=== PATIENT | female | born 1975 | race American Indian/Alaskan Native ===

== ENCOUNTER 2016-10-17 08:11 | Outpatient (CLI) | payer MEDICAID ==
--- NOTE | 2016-10-17 09:30 | Mammography Report ---
Bilateral Baseline digital screening mammogram with CAD. Findings: The breasts have a fibrofatty appearance. In the upper-outer quadrant of the left breast, there is an ovoid shaped nodular asymmetry. This has circumscribed margins. No additional focal abnormalities are seen in either breast. There is no architectural distortion. Impression: Left nodular asymmetry. BI-RADS code: 0. Recommendation: Ultrasound.
== END 2016-10-17 08:12 | disposition home or self-care (01) ==
LOC: MAMMO 08:11
PROVIDERS: ATTEND Internal Medicine
DX: Z12.31 Encounter for screening mammogram for malignant neoplasm of breast (principal)
CPT/HCPCS: 77067; G0202

== ENCOUNTER 2016-11-05 10:06 | Outpatient (CLI) | payer MEDICAID | END 2016-11-05 10:07 | disposition home or self-care (01) | LOC: US 10:06 | PROVIDERS: ATTEND Internal Medicine | DX: N64.89 Other specified disorders of breast (principal) ==

== ENCOUNTER 2017-11-03 13:39 | Emergency (ER) | payer MEDICAID ==
[2017-11-03] MEDS ORDERED: ZOFRAN ODT PO PRN (14:06)
[2017-11-03] MEDS ORDERED: PEPCID IV ONE (14:06)
[2017-11-03] MEDS ORDERED: NACL 0.9% 1000 ML 1,000 ML IV ONE (14:06)
[2017-11-03] MEDS ORDERED: LIDOCAINE VISCOUS 2% PO ONE (14:07)
[2017-11-03] MEDS ORDERED: CARAFATE PO ONE (14:07)
[2017-11-03] MEDS ORDERED: ALUM-MAG HYDROX-SIMETH 200-200-20MG/5ML PO ONE (14:07)
--- NOTE | 2017-11-03 14:08 | Emergency Department Report ---
ED Abdominal Pain HPI - General Chief Complaint: Abdominal Pain Stated Complaint: ABD PAIN Time Seen by Provider: 11/03/17 13:54 Source: patient, EMS (ems notes not available at time of chart dictation), RN notes reviewed, old records reviewed Mode of arrival: Stretcher Limitations: No Limitations - History of Present Illness Initial Comments: This is a 42-year-old female. The patient is previously unknown to this provider. Past medical history: Cerebral palsy, hypertension, stroke with mild right sided deficits Gastroenterology: Dr. Nayla Silva Patient had upper endoscopy with her street supervisor's earlier on this year, it demonstrated reflux esophagitis, nonbleeding esophageal ulcers, hiatal hernia , duodenitis The patient was instructed to discontinue NSAIDs. Patient's medications include [place]. The patient presents to the ER with a complaint of abdominal pain. It is epigastric and does not radiate anywhere. It increases with palpation and decreases with rest. Patient admits to some nausea and vomiting. She last defecated 3 days ago. She denies irritative and obstructive urinary symptoms. She reports that she is not drinking much water. She denies chest pain. Patient has some of her enclosed medical records with her, recently had a contrast enhanced CT angiogram for the chest/coronary arteries on 08/27/2017; the CT scan demonstrated concentric wall thickening of the images esophagus There was also a nonspecific focus in the dome of the liver. MD Complaint: abdominal pain -: Gradual, days(s), week(s) Location: diffuse Severity: moderate Severity scale (0 -10): 10 Quality: cramping, aching Consistency: intermittent Improves With: rest Worsens With: movement Associated Symptoms: nausea, vomiting, constipation. denies: diarrhea, fever, chills, dysuria, hematemesis, hematochezia, melena, hematuria, anorexia, syncope - Related Data Home Medications Medication Instructions Recorded Confirmed Last Taken Simvastatin [Zocor] 20 mg PO QHS 08/14/14 04/27/15 04/27/15 09:13 20 Aspirin EC [Aspirin Enteric Coated 81 mg PO DAILY 04/27/15 04/27/15 04/26/15 08: 00 TAB] Cyclobenzaprine [Flexeril 10 MG 10 mg PO BID 04/27/15 04/27/15 04/26/15 21:00 TAB] Furosemide [Lasix TAB] 20 mg PO BID 04/27/15 04/27/15 04/26/15 21:00 Gabapentin [Neurontin] 300 mg PO Q8HR 04/27/15 04/27/15 04/26/15 21:00 HYDROcodone/APAP 7.5-325 [[place] 1 each PO Q8HR PRN 04/27/15 04/27/15 04/26/15 08 :00 7.5/325] Lacosamide [Vimpat] 100 mg PO BID 04/27/15 04/27/15 04/26/15 100 Previous Rx's Medication Instructions Recorded Last Taken Type Acetaminophen [Tylenol Arthritis] 650 mg PO Q6HR PRN #30 tablet.er 11/03/17 Unknown Rx Famotidine [Pepcid] 20 mg PO BID #30 tablet 11/03/17 Unknown Rx Ondansetron [Zofran Odt] 4 mg PO Q8HR PRN #20 tab.rapdis 11/03/17 Unknown Rx Allergies Allergy/AdvReac Type Severity Reaction Status Date / Time No Known Allergies Allergy Verified 04/28/15 10:48 ED Review of Systems ROS: Stated complaint: ABD PAIN Other details as noted in HPI Comment: All other systems reviewed and negative ED Past Medical Hx - Past Medical History Hx Hypertension: Yes Hx CVA: Yes Hx Congestive Heart Failure: No Hx Diabetes: No Hx Seizures: Yes Hx Asthma: No Hx COPD: No Additional medical history: cerebral palsy - Surgical History Past Surgical History?: Yes Additional Surgical History: groin surgeryL leg surgery - Social History Smoking Status: Never Smoker - Medications Home Medications: Home Medications Medication Instructions Recorded Confirmed Last Taken Type Simvastatin [Zocor] 20 mg PO QHS 08/14/14 04/27/15 04/27/15 09:13 History 20 Aspirin EC [Aspirin Enteric Coated 81 mg PO DAILY 04/27/15 04/27/15 04/26/15 08: 00 History TAB] Cyclobenzaprine [Flexeril 10 MG 10 mg PO BID 04/27/15 04/27/15 04/26/15 21:00 History TAB] Furosemide [Lasix TAB] 20 mg PO BID 04/27/15 04/27/15 04/26/15 21:00 History Gabapentin [Neurontin] 300 mg PO Q8HR 04/27/15 04/27/15 04/26/15 21:00 History HYDROcodone/APAP 7.5-325 [[place] 1 each PO Q8HR PRN 04/27/15 04/27/15 04/26/15 08 :00 History 7.5/325] Lacosamide [Vimpat] 100 mg PO BID 04/27/15 04/27/15 04/26/15 History 100 Acetaminophen [Tylenol Arthritis] 650 mg PO Q6HR PRN #30 tablet.er 11/03/17 Unknown Rx Famotidine [Pepcid] 20 mg PO BID #30 tablet 11/03/17 Unknown Rx Ondansetron [Zofran Odt] 4 mg PO Q8HR PRN #20 tab.rapdis 11/03/17 Unknown Rx ED Physical Exam - General Limitations: No Limitations General appearance: alert, in no apparent distress - Head Head exam: Present: atraumatic, normocephalic - Eye Eye exam: Present: normal appearance, EOMI. Absent: nystagmus - ENT ENT exam: Present: normal exam, normal orophraynx, mucous membranes moist, normal external ear exam - Neck Neck exam: Present: normal inspection, full ROM - Respiratory Respiratory exam: Present: normal lung sounds bilaterally. Absent: respiratory distress - Cardiovascular Cardiovascular Exam: Present: regular rate, normal rhythm, normal heart sounds. Absent: systolic murmur, diastolic murmur, rubs, gallop - GI/Abdominal GI/Abdominal exam: Present: soft, tenderness, normal bowel sounds, other (mild epigastric tenderness. No rebound, guarding or peritoneal signs). Absent: distended, guarding, rebound, rigid, pulsatile mass - Extremities Exam Extremities exam: Present: normal inspection, full ROM, normal capillary refill. Absent: pedal edema, joint swelling, calf tenderness - Back Exam Back exam: Present: normal inspection, full ROM. Absent: tenderness, CVA tenderness (R), paraspinal tenderness, vertebral tenderness - Neurological Exam Neurological exam: Present: alert, other (patient moves 4 extremities spontaneously. There is no facial droop. The extraocular movements are intact. Sensation is intact to light touch in the upper and lower extremities. Patient is somewhat anxious.) - Psychiatric Psychiatric exam: Present: anxious - Skin Skin exam: Present: warm, dry, intact, normal color. Absent: rash ED Course Vital Signs 11/03/17 11/03/1711/03/18 13:41 13:47 13:59 Temperature 98.1 F 98.1 F Pulse Rate 65 88 Respiratory 16 16 Rate Blood Pressure 131/73 Blood Pressure 131/73 [Right] O2 Sat by Pulse 99 99 100 Oximetry 11/03/17 11/03/17 11/03/17 14:00 14:01 14:15 Temperature Pulse Rate Respiratory 16 Rate Blood Pressure 125/71 122/70 Blood Pressure [Right] O2 Sat by Pulse 100 99 99 Oximetry 11/03/17 11/03/17 11/03/17 14:30 14:45 15:00 Temperature Pulse Rate Respiratory Rate Blood Pressure 122/70 122/70 123/75 Blood Pressure [Right] O2 Sat by Pulse 99 98 99 Oximetry 11/03/17 11/03/17 11/03/17 15:15 15:30 16:11 Temperature Pulse Rate Respiratory Rate Blood Pressure 123/75 123/75 123/75 Blood Pressure [Right] O2 Sat by Pulse 98 98 98 Oximetry 11/03/17 11/03/17 11/03/17 16:15 16:30 16:45 Temperature Pulse Rate Respiratory Rate Blood Pressure 123/75 123/75 123/75 Blood Pressure [Right] O2 Sat by Pulse 100 99 99 Oximetry 11/03/17 11/03/17 11/03/17 17:00 17:15 17:31 Temperature Pulse Rate Respiratory Rate Blood Pressure 123/75 122/69 122/69 Blood Pressure [Right] O2 Sat by Pulse 98 99 99 Oximetry 11/03/17 11/03/17 17:45 18:01 Temperature Pulse Rate Respiratory Rate Blood Pressure 122/69 141/82 Blood Pressure [Right] O2 Sat by Pulse 98 97 Oximetry - Reevaluation(s) Reevaluation #1: 11/03/17 15:26 Differential diagnosis, including but not limited to: Constipation, gastritis, bowel obstruction, narcotic bowel syndrome Assessment and plan: 42-year-old female with a few weeks of abdominal pain and mild tenderness. The patient is a poor historian. Review of old medical records is appreciated. She is mostly constipated with a component of gastritis. However, she endorses that her child care team lead recommended she come to the ER for a CAT scan. She is medicated appropriately. Her laboratory studies are unremarkable. CT scan abdomen and pelvis is pending at this time. Reevaluation #2: 11/03/17 16:[address] Justice Chatterjee to follow up on ct a/p. would discharge if negative ED Medical Decision Making - Lab Data Result diagrams: 11/03/17 14:04 11/03/17 14:04 - Radiology Data Radiology results: report reviewed, image reviewed CT scan of the abdomen and pelvis is negative for acute disease. Incidental findings noted. Critical care attestation.: If time is entered above; I have spent that time in minutes in the direct care of this critically ill patient, excluding procedure time. ED Disposition Clinical Impression: Abdominal pain Disposition: DC- TO HOME OR SELFCARE Is pt being admited?: No Does the pt Need Aspirin: No Condition: Stable Instructions: Abdominal Pain (ED) Additional Instructions: continue current outpatient medications. discontinue percocet/narcotic therapy. drink 6-8 cups water/day. follow up with your GI doctor or pmd within the next 10 days. return right away if your pain changes or gets worse Prescriptions: Acetaminophen [Tylenol Arthritis] 650 mg PO Q6HR PRN #30 tablet.er PRN Reason: Pain Famotidine [Pepcid] 20 mg PO BID #30 tablet Ondansetron [Zofran Odt] 4 mg PO Q8HR PRN #20 tab.rapdis PRN Reason: Nausea Referrals: COURTNEY SILVA MD [Staff Physician] - 3-5 Days
[2017-11-03 14:17] LABS: Basophils # (Auto) 0.1 K/mm3 (0.0-0.1); Basophils % (Auto) 0.7 % (0.0-1.8); Eosinophils # (Auto) 0.1 K/mm3 (0.0-0.4); Eosinophils % (Auto) 1.9 % (0.0-4.3); Hemoglobin 12.3 gm/dl (10.1-14.3); Lymphocytes # (Auto) 3.1 K/mm3 (1.2-5.4); Lymphocytes % (Auto) 39.7 % (13.4-35.0); Mean Corpuscular HGB Conc 33 % (30-34); Mean Corpuscular Hemoglobin 31 pg (28-32); Mean Corpuscular Volume 93 fl (79-97); Monocytes # (Auto) 0.4 K/mm3 (0.0-0.8); Monocytes % (Auto) 5.3 % (0.0-7.3); Platelet Count 308 K/mm3 (140-440); Red Blood Count 3.97 M/mm3 (3.65-5.03); Red Cell Distribution Width 14.2 % (13.2-15.2)
[2017-11-03 14:30] LABS: Alanine Aminotransferase 17 units/L (7-56); Albumin 4.1 g/dL (3.9-5); BUN/Creatinine Ratio 20; Blood Urea Nitrogen 12 mg/dL (7-17); Calcium 9.1 mg/dL (8.4-10.2); Hemolysis Index 14
[2017-11-03 15:01] LABS: HCG Qualitative,Urine Negative (Negative)
[2017-11-03 15:02] LABS: Bilirubin,Urine NEG (Negative); Blood,Urine NEG (Negative); Color,Urine Yellow (Yellow); Mucus,Urine FEW /HPF; Protein,Urine <15 mg/dL mg/dL (Negative); Urobilinogen,Urine < 2.0 mg/dL (<2.0)
--- NOTE | 2017-11-03 17:29 | Cat Scan Report ---
FINAL REPORT EXAM: CT ABDOMEN PELVIS W CON HISTORY: ABD PAIN TECHNIQUE: CT abdomen and pelvis with intravenous contrast PRIORS: None. FINDINGS: No acute abnormality identified in the lung bases. There is a small hiatal hernia. There is enhancing 1.6 x 1.8 centimeter focus superior aspect right lobe of the liver with a peripheral nodular enhancement pattern consistent with hemangioma.. The spleen demonstrates normal size and attenuation. No pancreatic abnormalities seen. The kidneys demonstrate symmetric contrast enhancement. No evidence of hydronephrosis. The adrenal glands are unremarkable Abdominal aorta is normal in caliber. No pathologically enlarged lymph nodes are identified. No signs of free fluid or free air No evidence of small bowel dilatation. Colon is nondistended. No pericolonic inflammatory change. The appendix is identified and is unremarkable. Urinary bladder is unremarkable. IMPRESSION: Hiatal hernia hemangioma right lobe of the liver Otherwise no acute findings
[2017-11-03 18:30] VITALS: BP 141/82
== END 2017-11-03 18:15 | disposition home or self-care (01) ==
LOC: ED 13:39
DX: R10.13 Epigastric pain (principal); R11.2 Nausea with vomiting, unspecified; K59.00 Constipation, unspecified; I10 Essential (primary) hypertension; Z86.73 Personal history of transient ischemic attack (TIA), and cerebral infarction without residual deficits
CPT/HCPCS: 36415; 74177; 80053; 81001; 81025; 83690; 85025; 96361; 96374; 99284; J7030; Q9967; Q0162

== ENCOUNTER 2018-04-26 14:05 | Emergency (ER) | payer MEDICAID ==
[2018-04-26 14:18] VITALS: BP 151/87
--- NOTE | 2018-04-26 16:46 | Emergency Department Report ---
ED ENT HPI - General Chief complaint: Headache Stated complaint: (R) SIDE HEAD PAIN Time Seen by Provider: 04/26/18 16:32 Source: patient Mode of arrival: Ambulatory Limitations: No Limitations - History of Present Illness Initial comments: Ms. Cruz is a 42 yo female who present with toothache and right facial pain. Mild pain. Did not attempt pain medications. Was told to avoid ibuprofen by stomach specialist. blurry vision mentioned by triage note, patient does not endorse this symptom Ms. Cruz has hx of CP, CVA HTN. MD complaint: tooth pain, other (facial pain) -: Gradual, days(s) (2) Severity: mild Consistency: constant Improves with: pressure Context- Dental: history of dental caries, poor dental care Associated Symptoms: gum swelling, toothache - Related Data Home Medications Medication Instructions Recorded Confirmed Last Taken Simvastatin [Zocor] 20 mg PO QHS 08/14/14 04/27/15 04/27/15 09:13 20 Aspirin EC [Aspirin Enteric Coated 81 mg PO DAILY 04/27/15 04/27/15 04/26/15 08: 00 TAB] Cyclobenzaprine [Flexeril 10 MG 10 mg PO BID 04/27/15 04/27/15 04/26/15 21:00 TAB] Furosemide [Lasix TAB] 20 mg PO BID 04/27/15 04/27/15 04/26/15 21:00 Gabapentin [Neurontin] 300 mg PO Q8HR 04/27/15 04/27/15 04/26/15 21:00 HYDROcodone/APAP 7.5-325 [[place] 1 each PO Q8HR PRN 04/27/15 04/27/15 04/26/15 08 :00 7.5/325] Lacosamide [Vimpat] 100 mg PO BID 04/27/15 04/27/15 04/26/15 100 Previous Rx's Medication Instructions Recorded Last Taken Type Acetaminophen [Tylenol Arthritis] 650 mg PO Q6HR PRN #30 tablet.er 11/03/17 Unknown Rx Famotidine [Pepcid] 20 mg PO BID #30 tablet 11/03/17 Unknown Rx Ondansetron [Zofran Odt] 4 mg PO Q8HR PRN #20 tab.rapdis 11/03/17 Unknown Rx Penicillin V Potassium 500 mg PO TID 7 Days #21 tablet 04/26/18 Unknown Rx Tramadol HCl [Ultram] 50 mg PO QID PRN #15 tablet 04/26/18 Unknown Rx Allergies Allergy/AdvReac Type Severity Reaction Status Date / Time No Known Allergies Allergy Verified 04/26/18 14:10 ED Dental HPI - General Chief complaint: Headache Stated complaint: (R) SIDE HEAD PAIN Time Seen by Provider: 04/26/18 16:32 Source: patient Mode of arrival: Ambulatory Limitations: No Limitations - Related Data Home Medications Medication Instructions Recorded Confirmed Last Taken Simvastatin [Zocor] 20 mg PO QHS 08/14/14 04/27/15 04/27/15 09:13 20 Aspirin EC [Aspirin Enteric Coated 81 mg PO DAILY 04/27/15 04/27/15 04/26/15 08: 00 TAB] Cyclobenzaprine [Flexeril 10 MG 10 mg PO BID 04/27/15 04/27/15 04/26/15 21:00 TAB] Furosemide [Lasix TAB] 20 mg PO BID 04/27/15 04/27/15 04/26/15 21:00 Gabapentin [Neurontin] 300 mg PO Q8HR 04/27/15 04/27/15 04/26/15 21:00 HYDROcodone/APAP 7.5-325 [[place] 1 each PO Q8HR PRN 04/27/15 04/27/15 04/26/15 08 :00 7.5/325] Lacosamide [Vimpat] 100 mg PO BID 04/27/15 04/27/15 04/26/15 100 Previous Rx's Medication Instructions Recorded Last Taken Type Acetaminophen [Tylenol Arthritis] 650 mg PO Q6HR PRN #30 tablet.er 11/03/17 Unknown Rx Famotidine [Pepcid] 20 mg PO BID #30 tablet 11/03/17 Unknown Rx Ondansetron [Zofran Odt] 4 mg PO Q8HR PRN #20 tab.rapdis 11/03/17 Unknown Rx Penicillin V Potassium 500 mg PO TID 7 Days #21 tablet 04/26/18 Unknown Rx Tramadol HCl [Ultram] 50 mg PO QID PRN #15 tablet 04/26/18 Unknown Rx Allergies Allergy/AdvReac Type Severity Reaction Status Date / Time No Known Allergies Allergy Verified 04/26/18 14:10 ED Review of Systems ROS: Stated complaint: (R) SIDE HEAD PAIN Other details as noted in HPI Constitutional: denies: fever, malaise Respiratory: denies: cough Cardiovascular: denies: chest pain Gastrointestinal: denies: abdominal pain Neurological: denies: numbness, paresthesias ED Past Medical Hx - Past Medical History Hx Hypertension: Yes Hx CVA: Yes Hx Congestive Heart Failure: No Hx Diabetes: No Hx Seizures: Yes Hx Asthma: No Hx COPD: No Additional medical history: cerebral palsy - Surgical History Additional Surgical History: groin surgeryL leg surgery - Social History Smoking Status: Current Some Day Smoker Substance Use Type: Alcohol - Medications Home Medications: Home Medications Medication Instructions Recorded Confirmed Last Taken Type Simvastatin [Zocor] 20 mg PO QHS 08/14/14 04/27/15 04/27/15 09:13 History 20 Aspirin EC [Aspirin Enteric Coated 81 mg PO DAILY 04/27/15 04/27/15 04/26/15 08: 00 History TAB] Cyclobenzaprine [Flexeril 10 MG 10 mg PO BID 04/27/15 04/27/15 04/26/15 21:00 History TAB] Furosemide [Lasix TAB] 20 mg PO BID 04/27/15 04/27/15 04/26/15 21:00 History Gabapentin [Neurontin] 300 mg PO Q8HR 04/27/15 04/27/15 04/26/15 21:00 History HYDROcodone/APAP 7.5-325 [[place] 1 each PO Q8HR PRN 04/27/15 04/27/15 04/26/15 08 :00 History 7.5/325] Lacosamide [Vimpat] 100 mg PO BID 04/27/15 04/27/15 04/26/15 History 100 Acetaminophen [Tylenol Arthritis] 650 mg PO Q6HR PRN #30 tablet.er 11/03/17 Unknown Rx Famotidine [Pepcid] 20 mg PO BID #30 tablet 11/03/17 Unknown Rx Ondansetron [Zofran Odt] 4 mg PO Q8HR PRN #20 tab.rapdis 11/03/17 Unknown Rx Penicillin V Potassium 500 mg PO TID 7 Days #21 tablet 04/26/18 Unknown Rx Tramadol HCl [Ultram] 50 mg PO QID PRN #15 tablet 04/26/18 Unknown Rx ED Physical Exam - General Limitations: No Limitations General appearance: alert, in no apparent distress, other (smiling pleasant appears well) - Head Head exam: Present: atraumatic - ENT ENT exam: Present: mucous membranes moist, other (mild tooth decay on right side upper and lower gums) - Neck Neck exam: Present: normal inspection. Absent: tenderness, meningismus - Respiratory Respiratory exam: Absent: respiratory distress - Neurological Exam Neurological exam: Present: alert, oriented X3 - Psychiatric Psychiatric exam: Present: normal affect, normal mood ED Course Vital Signs 04/26/18 14:10 Temperature 98.3 F Pulse Rate 90 Respiratory 18 Rate Blood Pressure 151/87 O2 Sat by Pulse 95 Oximetry ED Medical Decision Making - Medical Decision Making Ms. Cruz presents with tooth and facial pain due to dental infection. Rx: PCN , ultram Critical care attestation.: If time is entered above; I have spent that time in minutes in the direct care of this critically ill patient, excluding procedure time. ED Disposition Clinical Impression: Dental infection Disposition: DC-01 TO HOME OR SELFCARE Is pt being admited?: No Does the pt Need Aspirin: No Condition: Stable Instructions: Dental Caries (ED), Toothache (ED) Prescriptions: Penicillin V Potassium 500 mg PO TID 7 Days #21 tablet Tramadol HCl [Ultram] 50 mg PO QID PRN #15 tablet PRN Reason: Mild Pain Unrelieved By Apap
[2018-04-26] MEDS ORDERED: NORCO 5/325 PO ONE (16:51)
== END 2018-04-26 17:06 | disposition home or self-care (01) ==
LOC: ED 14:05
DX: K04.7 Periapical abscess without sinus (principal); I10 Essential (primary) hypertension; F17.200 Nicotine dependence, unspecified, uncomplicated; Z86.73 Personal history of transient ischemic attack (TIA), and cerebral infarction without residual deficits; Z79.82 Long term (current) use of aspirin
CPT/HCPCS: 99282